=== PATIENT | male | born 1985 | race Caucasian/White ===

== ENCOUNTER 2020-10-09 13:13 | Emergency (ER) | payer MEDICAID ==
[~2020-10-09] VITALS: Ht 177.8 cm; Wt 79.0 kg
[2020-10-09 15:06] VITALS: BP 133/65
[2020-10-13 19:06] LABS: NEISSERIA GONORRHOEAE NAA Negative (Negative)
== END 2020-10-09 15:06 | disposition home or self-care (01) ==
LOC: ER 13:13
DX: Z11.3 Encounter for screening for infections with a predominantly sexual mode of transmission (principal)
CPT/HCPCS: 87491; 87591; 99281